=== PATIENT | male | born 1965 | race African-American/Black ===

== ENCOUNTER 2021-09-08 00:20 | Emergency (ER) | payer BC ==
[~2021-09-08] VITALS: Ht 175.3 cm; Wt 92.5 kg
[2021-09-08 00:25] VITALS: BP 151/106
--- NOTE | 2021-09-08 00:25 | NUR ---
BIBA TAKEN TO BED #3
[2021-09-08] MEDS ORDERED: ONDANSETRON 4 MG/2 ML VIAL ONE (01:38)
[2021-09-08] MEDS ORDERED: MORPHINE SULFATE 4 MG/ML SYR ONE (01:38)
[2021-09-08 01:39] LABS: BASOPHILS # (AUTO) 0.1 K/uL (0.00-0.22); EOSINOPHILS # (AUTO) 0.5 K/uL (0-0.4); EOSINOPHILS % (AUTO) 4.6 % (0.0-4.0); HEMATOCRIT 36.9 % (36-52); HEMOGLOBIN 12.2 g/dL (12.0-18.0); LYMPHOCYTES # (AUTO) 1.1 K/uL (2.0-11.5); LYMPHOCYTES % (AUTO) 10.6 % (20.5-51.1); MEAN CORPUSCULAR HEMOGLOBIN 29 pg (27-31); MEAN CORPUSCULAR HGB CONC 33 g/dL (33-37); MONOCYTES # (AUTO) 0.6 K/uL (0.8-1.0); MONOCYTES % (AUTO) 5.8 % (1.7-9.3); NEUTROPHILS # (AUTO) 8.2 K/uL (1.8-7.7); PLATELET COUNT (AUTO) 222 K/uL (140-450); RED BLOOD CELL COUNT(AUTO) 4.29 MIL/uL (4.20-6.10); RED CELL DISTRIBUTION WIDTH 14.9 % (11.6-13.7); WHITE BLOOD COUNT (AUTO) 10.6 K/uL (4.8-10.8)
[2021-09-08] MEDS: MORPHINE SULFATE 4 MG/ML SYR IVP ONE (01:40)
[2021-09-08] MEDS: ONDANSETRON 4 MG/2 ML VIAL IVP ONE (01:44)
[2021-09-08 01:52] LABS: ANION GAP 10.5 (8-16); CARBON DIOXIDE 28.2 mmol/L (21-32); CREATININE 0.9 mg/dL (0.6-1.3); POTASSIUM 3.7 mmol/L (3.5-5.1)
--- NOTE | 2021-09-08 02:00 | NUR ---
pt complains that the brace is hurting his neck.
--- NOTE | 2021-09-08 02:20 | NUR ---
BIBA FROM MOTHER'S HOUSE S/P MECHANICAL FALL. PT USES FWW, STATES HIS ANKLES GAVE OUT, PT FELL LANDED ON BUTTOCKS THEN HEAD HIT THE GROUND. DENIES LOC AND N/V. PT STATES HE "SAW STARS" AND HAD BLURRY VISION. REPORTS 4/10 BASE OF HEAD PAIN TO FOREHEAD AND THE NECK. PT HAS HARD ASPEN COLLAR. PT ON ELIQUIS. HX:RA, HTN, FUSSION ON NECK AND LEFT ANKLE RX:KWADWO PEREZ
--- NOTE | 2021-09-08 03:00 | NUR ---
pt request brother and sister numbers to be addded to file laurie diego [phone] brother rosalinda michael [phone]
[2021-09-08] MEDS ORDERED: ACET-9535 PO (04:21)
[2021-09-08] MEDS ORDERED: DOCU-299 PO (04:21)
[2021-09-08] MEDS ORDERED: APIX5TAB PO (04:21)
[2021-09-08] MEDS ORDERED: ALBU0.0912 INH (04:23)
[2021-09-08] MEDS: NICARDIPINE HYDROCHLORIDE 25 MG in NACL 0.9% 240 ML IV ONE (04:25)
[2021-09-08] MEDS ORDERED: PROTHROMBIN COMPLEX HUMAN 500 UNITS KIT IV ONE (04:25)
--- NOTE | 2021-09-08 04:28 | NUR ---
pt request to take neck brace off. will ask doctor
--- NOTE | 2021-09-08 04:35 | NUR ---
dr khushi childs to revaluate. doesnt want to remove brace d/t possible brain bleed but dr to order reglan for headache
--- NOTE | 2021-09-08 04:52 | NUR ---
walked covid swabs to lab
--- NOTE | 2021-09-08 04:54 | NUR ---
called pt brother informed that he will be transferred to [facility]
--- NOTE | 2021-09-08 05:20 | NUR ---
called harpal angeles/mandi Ford RN to provide report.
--- NOTE | 2021-09-08 05:26 | NUR ---
[facility] AT BEDSIDE FOR TRANSPORT
[2021-09-08 05:36] VITALS: BP 150/96
--- NOTE | 2021-09-08 05:43 | NUR ---
Patient to be transferred to [facility]. Is being transferred due to higher level of care r/t subdural hematoma. Receiving facility has accepting physician and available space. ER physician has signed transfer form. Patient or responsible alliance party has agreed to transfer and signed form. Patient belongings inventoried and will be sent with patient. Copy of nursing notes, lab reports, EKG, Physicians Orders and X-rays to be sent with patient. Report called to moy at receiving facility. [facility] ambulance service has been called for transfer. ETA is 20 miun.
== END 2021-09-08 05:36 | disposition short-term general hospital (02) ==
LOC: MED 00:20
DX: S06.5X0A Traumatic subdural hemorrhage without loss of consciousness, initial encounter (principal); M54.2 Cervicalgia; I10 Essential (primary) hypertension; Z79.899 Other long term (current) drug therapy; Z20.822 Contact with and (suspected) exposure to COVID-19; W19.XXXA Unspecified fall, initial encounter; Y93.89 Activity, other specified; Y92.89 Other specified places as the place of occurrence of the external cause; Y99.8 Other external cause status
CPT/HCPCS: 36415; 70450; 72125; 80048; 85025; 85610; 85730; 86886; 86900; 86901; 93005; 96374; 96375; 99291; J2270; J2405; J7030; U0003; 99285